=== PATIENT | male | born 1995 | race Caucasian/White ===

== ENCOUNTER 2016-11-27 16:12 | Emergency (ER) | payer SELFPAY ==
[~2016-11-27] VITALS: Ht 177.8 cm; Wt 69.0 kg
[2016-11-27 16:14] VITALS: BP 132/82; PULSE 108; RESP 20; TEMP 98.2; O2SAT 96
[2016-11-27] MEDS ORDERED: SODIUM CHLOR 0.9% 1000 ML INJ 1,000 ML IV SCH (16:41)
[2016-11-27] MEDS ORDERED: METOCLOPRAMIDE HCL 10 MG/2 ML VIAL IV PUSH ONE (16:45)
[2016-11-27] MEDS ORDERED: SODIUM CHLORIDE 0.9% FLUSH 10 ML FLUSH IV FLUSH PRN (16:45)
[2016-11-27] MEDS ORDERED: ONDANSETRON HCL 4 MG/2 ML VIAL IVP ONE (16:45)
[2016-11-27] MEDS ORDERED: KETOROLAC TROMETHAMINE 10 MG TAB PO ONE (16:45)
--- NOTE | 2016-11-27 16:51 | PD ---
HPI Chief Complaint: GI Complaint Time Seen by Provider: 16:28 Travel History International Travel<30 days: No Contact w/Intl Traveler<30days: No Traveled to known affect area: No History of Present Illness HPI 21-year-old male here for evaluation of headache, nausea, vomiting, diarrhea. Symptoms started yesterday evening when the patient woke up to go to work around 4:00 PM. At that time he developed a diffuse pounding headache, nausea, generalized malaise, lightheadedness. Later yesterday evening the patient started having diarrhea which continued throughout today. About 1 hour ago the patient began vomiting. Emesis and bowel movements are nonbloody. No abdominal pain. No recent travel. No recent antibiotic use. No known sick contacts. Patient continues to have a diffuse pounding headache, however this is not the worst headache of his life. No paresthesias or motor deficits. He smokes cigarettes. He denies illicit drug use or IVDU. PFSH Past Medical History Cardiovascular Problems: Yes (MURMUR) Diminished Hearing: No Past Surgical History Other Surgery: Yes (hernia repair) Social History Alcohol Use: Yes (OCCASIONALLY) Tobacco Use: Yes (/2 PPD) Substance Use: Yes (MARIJANA OCCASIONALLY) Allergies-Medications (Allergen,Severity, Reaction): Coded Allergies: Hydrocodone (Unverified Adverse Reaction, Intermediate, hives, 11/27/16) Reported Meds & Prescriptions Reported Meds & Active Scripts Active No Active Prescriptions or Reported Medications Review of Systems Except as stated in HPI: all other systems reviewed are Neg Physical Exam Narrative GENERAL: Well-developed, well-nourished, comfortable, no acute distress. SKIN: Focused skin assessment warm/dry. No rash. No pallor. HEAD: Atraumatic. Normocephalic. EYES: Pupils equal and round. No scleral icterus. No injection or drainage. ENT: Mucous membranes pink and moist. NECK: Trachea midline. No JVD. No nuchal rigidity. CARDIOVASCULAR: Regular rate and rhythm. RESPIRATORY: No accessory muscle use. Clear to auscultation. Breath sounds equal bilaterally. GASTROINTESTINAL: Abdomen soft, non-tender, nondistended. MUSCULOSKELETAL: No obvious deformities. No clubbing. No cyanosis. No edema. NEUROLOGICAL: Awake and alert. No obvious cranial nerve deficits. Motor grossly within normal limits. Normal speech. PSYCHIATRIC: Appropriate mood and affect; insight and judgment normal. Data Data Last Documented VS Vital Signs Date Time Temp Pulse Resp B/P Pulse Ox O2 Delivery O2 Flow Rate FiO2 11/27/16 16:14 98.2 108 20 132/82 96 Room Air Orders Complete Blood Count With Diff (11/27/16 16:41) Comprehensive Metabolic Panel (11/27/16 16:41) Lipase (11/27/16 16:41) Iv Access Insert/Monitor (11/27/16 16:41) Ecg Monitoring (11/27/16 16:41) Oximetry (11/27/16 16:41) Ondansetron Inj (Zofran Inj) (11/27/16 16:45) Sodium Chlor 0.9% 1000 Ml Inj (Ns 1000 M (11/27/16 16:41) Sodium Chloride 0.9% Flush (Ns Flush) (11/27/16 16:45) Metoclopramide Inj (Reglan Inj) (11/27/16 16:45) Ketorolac (Toradol) (11/27/16 16:45) Ketorolac Inj (Toradol Inj) (11/27/16 17:15) Labs Laboratory Tests Test 11/27/16 17:05 White Blood Count 12.2 TH/MM3 Red Blood Count 5.59 MIL/MM3 Hemoglobin 16.7 GM/DL Hematocrit 48.3 % Mean Corpuscular Volume 86.5 FL Mean Corpuscular Hemoglobin 29.8 PG Mean Corpuscular Hemoglobin 34.5 % Concent Red Cell Distribution Width 12.7 % Platelet Count 188 TH/MM3 Mean Platelet Volume 9.9 FL Neutrophils (%) (Auto) 86.0 % Lymphocytes (%) (Auto) 5.1 % Monocytes (%) (Auto) 8.7 % Eosinophils (%) (Auto) 0.1 % Basophils (%) (Auto) 0.1 % Neutrophils # (Auto) 10.5 TH/MM3 Lymphocytes # (Auto) 0.6 TH/MM3 Monocytes # (Auto) 1.1 TH/MM3 Eosinophils # (Auto) 0.0 TH/MM3 Basophils # (Auto) 0.0 TH/MM3 CBC Comment DIFF FINAL Differential Comment Sodium Level 137 MEQ/L Potassium Level 3.5 MEQ/L Chloride Level 103 MEQ/L Carbon Dioxide Level 23.2 MEQ/L Anion Gap 11 MEQ/L Blood Urea Nitrogen 14 MG/DL Creatinine 0.92 MG/DL Estimat Glomerular Filtration 103 ML/MIN Rate Random Glucose 111 MG/DL Calcium Level 8.6 MG/DL Total Bilirubin 0.7 MG/DL Aspartate Amino Transf 18 U/L (AST/SGOT) Alanine Aminotransferase 27 U/L (ALT/SGPT) Alkaline Phosphatase 79 U/L Total Protein 7.9 GM/DL Albumin 3.9 GM/DL Lipase 140 U/L [facility] Medical Decision Making Medical Screen Exam Complete: Yes Emergency Medical Condition: Yes Differential Diagnosis Gastroenteritis, food poisoning, dehydration, metabolic abnormality, SAH/ meningitis/encephalitis unlikely Narrative Course Vital signs reviewed. Heart rate improved from 108-90 after a liter of normal saline IV. CBC shows WBC 12.2, hemoglobin 16.7, hematocrit 48.3, platelets 188, neutrophils 86%. CMP is unremarkable. Lipase is 140. The patient was given a liter of normal saline IV, IV Toradol, and IV Reglan, and on reassessment he is sleeping comfortably. States his headache has improved. He is tolerating Gatorade in the emergency department. His abdominal exam is benign. He is likely suffering from a gastroenteritis. He is stable for discharge home with outpatient follow-up with a primary care physician this week. He was informed on when to return to the emergency department. He verbalizes understanding and agreement with plan. Diagnosis Primary Impression: Gastroenteritis Referrals: Primary Care Physician 3 days Additional Instructions: Follow-up with a primary care physician this week. Stay hydrated with plenty of fluids. Return to the emergency department for worsening symptoms or any other concerns. Scripts Ondansetron Odt (Zofran Odt)4 Mg Tab4 Mg SL Q8HR PRN (Nausea/Vomiting) #15 TAB Ref 0 Prov:Sal Rocha MD 11/27/16 Disposition: DISCHARGE HOME Condition: Stable Sal Rocha MD November 27, 2016 16:51
[2016-11-27] MEDS ORDERED: KETOROLAC TROMETHAMINE 30 MG/ML (IVP) VIAL IV PUSH ONE (17:15)
[2016-11-27 17:21] LABS: AUTOMATED NEUTROPHIL # 10.5 TH/MM3 (1.8-7.7); BASOPHIL % 0.1 % (0.0-2.0); EOSINOPHIL % 0.1 % (0.0-4.0); HEMATOCRIT 48.3 % (39.0-51.0); HEMO FLAGS DIFF FINAL; LYMPH % 5.1 % (9.0-44.0); LYMPHOCYTE # 0.6 TH/MM3 (1.0-4.8); MEAN CELL VOLUME 86.5 FL (80.0-100.0); MEAN CORPUSCULAR HEMOGLOBIN 29.8 PG (27.0-34.0); MEAN CORPUSCULAR HGB CONC 34.5 % (32.0-36.0); MONO % 8.7 % (0.0-8.0); PLATELET COUNT 188 TH/MM3 (150-450); RED BLOOD COUNT 5.59 MIL/MM3 (4.50-5.90); RED CELL DISTRIBUTION WIDTH 12.7 % (11.6-17.2); WHITE BLOOD COUNT 12.2 TH/MM3 (4.0-11.0)
[2016-11-27 17:46] LABS: ANION GAP 11 MEQ/L (5-15); AST (GOT) 18 U/L (15-37); BICARBONATE 23.2 MEQ/L (21.0-32.0); BLOOD UREA NITROGEN 14 MG/DL (7-18); CHLORIDE 103 MEQ/L (98-107); GLOMERULAR FILTRATION RATE 103 ML/MIN (>89); POTASSIUM 3.5 MEQ/L (3.5-5.1); SODIUM (NA) 137 MEQ/L (136-145)
[2016-11-27 17:49] LABS: ALKALINE PHOSPHATASE 79 U/L (45-117); ALT (GPT) 27 U/L (12-78); TOTAL BILIRUBIN ADULT 0.7 MG/DL (0.2-1.0)
[2016-11-27] MEDS ORDERED: ZOFR4TAB3 SL (18:27)
[2016-11-27 18:38] VITALS: BP 123/60; TEMP 98.3
== END 2016-11-27 18:38 | disposition home or self-care (01) ==
LOC: NEPD 16:12
DX: K52.9 Noninfective gastroenteritis and colitis, unspecified (principal)
CPT/HCPCS: 80053; 83690; 85025; 96374; 96375; 99284; J1885; J2405; J2765; J7030

== ENCOUNTER 2017-01-07 06:11 | Emergency (ER) | payer SELFPAY ==
[~2017-01-07] VITALS: Ht 177.8 cm; Wt 70.0 kg
[~2017-01-07 06:11] MED LIST: ZOFR4TAB3 SL
[2017-01-07 06:14] VITALS: BP 134/77; PULSE 62; RESP 16; TEMP 98; O2SAT 99
[2017-01-07 06:31] VITALS: O2SAT 99
[2017-01-07 06:47] LABS: AUTOMATED NEUTROPHIL # 7.1 TH/MM3 (1.8-7.7); BASOPHIL # 0.1 TH/MM3 (0-0.2); BASOPHIL % 0.7 % (0.0-2.0); EOSINOPHIL # 0.3 TH/MM3 (0-0.4); EOSINOPHIL % 2.6 % (0.0-4.0); HEMATOCRIT 44.4 % (39.0-51.0); HEMO FLAGS DIFF FINAL; LYMPH % 32.1 % (9.0-44.0); MEAN CORPUSCULAR HEMOGLOBIN 29.3 PG (27.0-34.0); MEAN CORPUSCULAR HGB CONC 33.3 % (32.0-36.0); MONO % 7.3 % (0.0-8.0); NEUT % 57.3 % (16.0-70.0); PLATELET COUNT 212 TH/MM3 (150-450); RED BLOOD COUNT 5.05 MIL/MM3 (4.50-5.90); RED CELL DISTRIBUTION WIDTH 13.3 % (11.6-17.2); WHITE BLOOD COUNT 12.5 TH/MM3 (4.0-11.0)
--- NOTE | 2017-01-07 06:48 | RADRPT ---
EXAM DATE/TIME: 01/07/2017 06:41 [facility] COMPARISON: CHEST SINGLE AP, December 15, 2014, 21:00. INDICATIONS : Chest pain for 2 days. MEDICAL HISTORY : None. SURGICAL HISTORY : None. ENCOUNTER: Initial ACUITY: 2 days PAIN SCORE: 8/10 LOCATION: Left chest FINDINGS: The lungs are clear without infiltrate, nodule, or mass. There is no appreciable pleural effusion fo r technique. Heart and mediastinum are unremarkable. CONCLUSION: No acute cardiopulmonary disease. Ashia Mercedes MD on January 07, 2017 at 6:46 Board Certified Radiologist. This report was verified electronically.
[2017-01-07 07:11] LABS: ANION GAP 7 MEQ/L (5-15); BICARBONATE 28.2 MEQ/L (21.0-32.0); BLOOD UREA NITROGEN 13 MG/DL (7-18); CHLORIDE 105 MEQ/L (98-107); GLOMERULAR FILTRATION RATE 121 ML/MIN (>89); POTASSIUM 3.8 MEQ/L (3.5-5.1); SODIUM (NA) 140 MEQ/L (136-145)
[2017-01-07 07:16] LABS: CREATINE KINASE 208 U/L (39-308)
--- NOTE | 2017-01-07 07:30 | PD ---
HPI Chief Complaint: Chest Pain Time Seen by Provider: 07:12 Travel History International Travel<30 days: No Contact w/Intl Traveler<30days: No Traveled to known affect area: No History of Present Illness HPI 22-year-old male presents with left lower quadrant abdominal pain and left lower chest pain since yesterday. He states the quality is sharp. Severity is moderate. Pain is worse with movement. The left lower quadrant pain is near where he had hernia surgery 2 years ago. He states that he hasn't had issues till yesterday. He denies any trauma. He denies other concurrent complaints other than cough. He denies other modifying factors. Duration is one day. PFSH Past Medical History Cardiovascular Problems: Yes (MURMUR) Diminished Hearing: No Tetanus Vaccination: Unknown Past Surgical History Other Surgery: Yes (hernia repair) Family History Narrative Family History No sudden Family Myocardial Infarction: No Social History Alcohol Use: No (SOBER [id number]) Tobacco Use: Yes (1/2 PPD) Substance Use: No (DENIES) Allergies-Medications (Allergen,Severity, Reaction): Coded Allergies: Hydrocodone (Unverified Adverse Reaction, Intermediate, hives, 01/07/17) Reported Meds & Prescriptions Reported Meds & Active Scripts Active No Active Prescriptions or Reported Medications Review of Systems Except as stated in HPI: all other systems reviewed are Neg Physical Exam Narrative GENERAL: Well-nourished, well-developed patient. Well-appearing SKIN: Warm and dry. HEAD: Normocephalic and atraumatic. EYES: No injection or drainage. ENT: No nasal drainage noted. NECK: Supple, trachea midline. CARDIOVASCULAR: Regular rate and rhythm RESPIRATORY: Breath sounds equal bilaterally at apices. No accessory muscle use. GASTROINTESTINAL: Abdomen soft, tender left lower quadrant, nondistended. No rebound or guarding EXTREMITIES: No edema. NEUROLOGICAL: Awake and alert. Motor and sensory grossly within normal limits. Normal speech. Data Data Last Documented VS Vital Signs Date Time Temp Pulse Resp B/P Pulse Ox O2 Delivery O2 Flow Rate FiO2 01/07/17 08:14 65 20 129/60 01/07/17 06:31 99 Room Air 01/07/17 06:14 98.0 Orders Electrocardiogram (01/07/17 ) Complete Blood Count With Diff (01/07/17 06:30) Basic Metabolic Panel (Bmp) (01/07/17 06:30) Ckmb (Isoenzyme) Profile (01/07/17 06:30) Troponin I (01/07/17 06:30) Chest, Single Ap (01/07/17 06:30) Iv Access Insert/Monitor (01/07/17 06:30) Ecg Monitoring (01/07/17 06:30) Oxygen Administration (01/07/17 06:30) Oximetry (01/07/17 06:30) Ct Abd/Pel W Iv Contrast(Rout) (01/07/17 07:12) Ct Pulmonary Angiogram (01/07/17 07:12) CKMB (01/07/17 06:30) CKMB% (01/07/17 06:30) Iohexol 350 Inj (Omnipaque 350 Inj) (01/07/17 08:11) Labs Laboratory Tests Test 01/07/17 06:30 White Blood Count 12.5 TH/MM3 Red Blood Count 5.05 MIL/MM3 Hemoglobin 14.8 GM/DL Hematocrit 44.4 % Mean Corpuscular Volume 88.0 FL Mean Corpuscular Hemoglobin 29.3 PG Mean Corpuscular Hemoglobin 33.3 % Concent Red Cell Distribution Width 13.3 % Platelet Count 212 TH/MM3 Mean Platelet Volume 9.0 FL Neutrophils (%) (Auto) 57.3 % Lymphocytes (%) (Auto) 32.1 % Monocytes (%) (Auto) 7.3 % Eosinophils (%) (Auto) 2.6 % Basophils (%) (Auto) 0.7 % Neutrophils # (Auto) 7.1 TH/MM3 Lymphocytes # (Auto) 4.0 TH/MM3 Monocytes # (Auto) 0.9 TH/MM3 Eosinophils # (Auto) 0.3 TH/MM3 Basophils # (Auto) 0.1 TH/MM3 CBC Comment DIFF FINAL Differential Comment Sodium Level 140 MEQ/L Potassium Level 3.8 MEQ/L Chloride Level 105 MEQ/L Carbon Dioxide Level 28.2 MEQ/L Anion Gap 7 MEQ/L Blood Urea Nitrogen 13 MG/DL Creatinine 0.80 MG/DL Estimat Glomerular Filtration 121 ML/MIN Rate Random Glucose 92 MG/DL Calcium Level 8.9 MG/DL Total Creatine Kinase 208 U/L Creatine Kinase MB 1.0 NG/ML Troponin I LESS THAN 0.02 NG/ML MDM Medical Decision Making Medical Screen Exam Complete: Yes Emergency Medical Condition: Yes Medical Record Reviewed: Yes (past history confirmed) Interpretation(s) EKG is sinus rhythm without STEMI criteria CBC & BMP Diagram 01/07/17 06:30 Last [address] Angiography 01/07/17711 Signed Impressions: Service Date/Time: Saturday, January 07, 2017 07:50 - CONCLUSION: No acute disease. Leonel Duke MD Abdomen/Pelvis CT 01/07/17711 Signed Impressions: Service Date/Time: Saturday, January 07, 2017 07:52 - CONCLUSION: No acute disease. Leonel Duke MD Chest X-Ray 01/07/17629 Signed Impressions: Service Date/Time: Saturday, January 07, 2017 06:41 - CONCLUSION: No acute cardiopulmonary disease. Ashia Mercedes MD Differential Diagnosis Diverticulitis, stone, musculoskeletal, PE, costochondritis Narrative Course Blood work, chest x-ray, EKG ordered as protocol prior to my arrival and reviewed. Will add on CT chest and abdomen and reevaluate ed workup no acute, Patient denies any new complaints, all questions answered. Patient knows that follow up is incumbent on them and to return to the emergency room immediately if new or worsening symptoms develop. Patient given strict return precautions, vitals reviewed and are normal, agrees to further workup as an outpatient. Diagnosis Primary Impression: Abdominal pain Qualified Code: R10.32 - Left lower quadrant pain Additional Impression: Chest pain Qualified Code: R07.9 - Chest pain, unspecified type Patient Instructions: General Instructions Additional Instructions: Return as needed, Tylenol as needed, follow with primary Tuesday for reevaluation Med/Other Pt SpecificInfo: No Change to Meds Scripts No Active Prescriptions or Reported Meds Disposition: DISCHARGE HOME Condition: Stable Lesley Rojo MD Jan 07, 2017 07:30
[2017-01-07] MEDS ORDERED: IOHEXOL 350 MG/ML 10 ML VIAL (for RAD DIAG) IV ONE (08:11)
[2017-01-07 08:14] VITALS: BP 129/60; PULSE 65; RESP 20
--- NOTE | 2017-01-07 08:17 | RADRPT ---
EXAM DATE/TIME: 01/07/2017 07:50 [facility] COMPARISON: CT ABDOMEN & PELVIS W CONTRAST, January 07, 2017, 7:52. INDICATIONS : Left-sided chest pain. IV CONTRAST: 80 cc Omnipaque 350 (iohexol) IV ; Cumulative dose for multiple exams. RADIATION DOSE: 8.65 CTDIvol (mGy) MEDICAL HISTORY : None SURGICAL HISTORY : Inguinal hernia repair. ENCOUNTER: Initial ACUITY: 2 days PAIN SCALE: 3/10 LOCATION: Left chest TECHNIQUE: Volumetric scanning of the chest was performed using a pulmonary embolism protocol MIP images were re constructed. Using automated exposure control and adjustment of the mA and/or kV according to patien t size, radiation dose was kept as low as reasonably achievable to obtain optimal diagnostic quality images. DICOM format image data is available electronically for review and comparison. FINDINGS: PULMONARY ARTERIES: No filling defects are seen in the pulmonary arteries through the segmental level. LUNGS: There is no consolidation or pneumothorax . No concerning pulmonary nodule is visualized. PLEURAE: There is no pleural thickening or pleural effusion. MEDIASTINUM: There is good visualization of the great vessels of the middle mediastinum. No evidence of mediastin al or hilar adenopathy/mass. MUSCULOSKELETAL: Within normal limits for patient age. MISCELLANEOUS: The visualized upper abdominal organs demonstrate no acute abnormality. CONCLUSION: No acute disease. Leonel Duke MD on January 07, 2017 at 8:12 Board Certified Radiologist. This report was verified electronically.
--- NOTE | 2017-01-07 08:19 | RADRPT ---
EXAM DATE/TIME: 01/07/2017 07:52 [facility] COMPARISON: No previous studies available for comparison. INDICATIONS : Left abdominal/pelvic pain. IV CONTRAST: 80 cc Omnipaque 350 (iohexol) IV ; Cumulative dose for multiple exams. ORAL CONTRAST: No oral contrast ingested. RADIATION DOSE: 9.16 CTDIvol (mGy) MEDICAL HISTORY : None SURGICAL HISTORY : Inguinal hernia repair. ENCOUNTER: Initial ACUITY: 1 day PAIN SCALE: 3/10 LOCATION: Left pelvis TECHNIQUE: Volumetric scanning of the abdomen and pelvis was performed. Using automated exposure control and ad justment of the mA and/or kV according to patient size, radiation dose was kept as low as reasonably achievable to obtain optimal diagnostic quality images. DICOM format image data is available electro nically for review and comparison. FINDINGS: LOWER LUNGS: The visualized lower lungs are clear. LIVER: Homogeneous density without lesion. There is no dilation of the biliary tree. No calcified gallston es. SPLEEN: Normal size without lesion. PANCREAS: Within normal limits. KIDNEYS: Normal in size and shape. There is no mass, stone or hydronephrosis. ADRENAL GLANDS: Within normal limits. VASCULAR: There is no aortic aneurysm. BOWEL/MESENTERY: The stomach, small bowel, and colon demonstrate no acute abnormality. There is no free intraperitone al air or fluid. ABDOMINAL WALL: Within normal limits. RETROPERITONEUM: There is no lymphadenopathy. BLADDER: No wall thickening or mass. REPRODUCTIVE: Within normal limits. INGUINAL: There is no lymphadenopathy or hernia. MUSCULOSKELETAL: Within normal limits for patient age. CONCLUSION: No acute disease. Leonel Duke MD on January 07, 2017 at 8:15 Board Certified Radiologist. This report was verified electronically.
--- NOTE | 2017-01-07 08:26 | EKG ---
Date Performed: 01/07/2017 Time Performed: 06:31:51 PTAGE: 21 years EKG: Sinus rhythm WITH SINUS ARRHYTHMIA NORMAL ECG NO SIGNIFICANT CHANGE FROM PRIOR ELECTROCARDIOGRAM. PREVIOUS TRACING : 03/18/2016 22.51 DOCTOR: Oscar Smith Interpretating Date/Time 01/07/2017 08:25:31
== END 2017-01-07 09:02 | disposition home or self-care (01) ==
LOC: NEPE 06:11
DX: R10.32 Left lower quadrant pain (principal); R07.9 Chest pain, unspecified; F17.200 Nicotine dependence, unspecified, uncomplicated
CPT/HCPCS: 71010; 71275; 74177; 80048; 82550; 82552; 84484; 85025; 93005; 99285; Q9967